=== PATIENT | female | born 1975 | race Caucasian/White ===

== ENCOUNTER 2017-02-11 16:48 | Emergency (ER) | payer MEDICARE ==
[~2017-02-11] VITALS: Ht 154.9 cm; Wt 63.6 kg
[~2017-02-11 16:48] MED LIST: FLEXERIL PO; ULTRAM50 M1 PO
[2017-02-11] MEDS ORDERED: XANAX1 MG PO (17:11)
[2017-02-11] MEDS ORDERED: TRAZODONE50 MG PO (17:11)
[2017-02-11] MEDS ORDERED: ULTRAM50 M1 PO (17:29)
[2017-02-11] MEDS ORDERED: FLEXERIL PO (17:29)
[2017-02-11] MEDS ORDERED: LORTAB 10-325 M1 TAB PO (18:02)
[2017-02-11 18:08] VITALS: BP 132/98
== END 2017-02-11 18:08 | disposition home or self-care (01) ==
LOC: ED 16:48
DX: S39.012A Strain of muscle, fascia and tendon of lower back, initial encounter (principal); M54.40 Lumbago with sciatica, unspecified side

== ENCOUNTER 2017-03-30 09:21 | Emergency (ER) | payer MEDICARE ==
[~2017-03-30] VITALS: Ht 154.9 cm; Wt 70.0 kg
[~2017-03-30 09:21] MED LIST changes: +LORTAB 10-325 M1 TAB PO; +TRAZODONE50 MG PO; +XANAX1 MG PO
[2017-03-30] MEDS ORDERED: MOTRIN800 MG PO (10:07)
[2017-03-30 10:41] VITALS: BP 141/82
== END 2017-03-30 10:47 | disposition home or self-care (01) ==
LOC: ED 09:21
DX: S93.402A Sprain of unspecified ligament of left ankle, initial encounter (principal); F32.9 Major depressive disorder, single episode, unspecified; W14.XXXA Fall from tree, initial encounter; Y92.007 Garden or yard of unspecified non-institutional (private) residence as the place of occurrence of the external cause

== ENCOUNTER 2017-04-02 10:16 | Emergency (ER) | payer MEDICARE ==
[~2017-04-02] VITALS: Ht 154.9 cm; Wt 68.0 kg
[~2017-04-02 10:16] MED LIST changes: +MOTRIN800 MG PO
[2017-04-02] MEDS ORDERED: MOTRIN800 MG PO (10:49)
[2017-04-02 10:52] VITALS: BP 121/82
== END 2017-04-02 10:57 | disposition home or self-care (01) ==
LOC: ED 10:16
DX: G56.31 Lesion of radial nerve, right upper limb (principal); F32.9 Major depressive disorder, single episode, unspecified; F17.210 Nicotine dependence, cigarettes, uncomplicated

== ENCOUNTER 2017-04-18 11:17 | Emergency (ER) | payer MEDICARE, OTHER ==
[~2017-04-18] VITALS: Ht 154.9 cm; Wt 68.2 kg
[2017-04-18] MEDS ORDERED: HYDROCODONE/ACE1 TAB PO (11:39)
[2017-04-18] MEDS ORDERED: EC-NAPROSYN500 MG PO (11:39)
[2017-04-18 11:50] VITALS: BP 117/67
== END 2017-04-18 12:05 | disposition home or self-care (01) ==
LOC: ED 11:17
DX: G89.29 Other chronic pain (principal); M54.5 Low back pain

== ENCOUNTER 2017-09-14 11:53 | Emergency (ER) | payer MEDICARE, OTHER ==
[~2017-09-14] VITALS: Ht 154.9 cm; Wt 67.2 kg
[~2017-09-14 11:53] MED LIST changes: +EC-NAPROSYN500 MG PO; +HYDROCODONE/ACE1 TAB PO
[2017-09-14] MEDS ORDERED: MOTRIN800 MG PO (12:22)
[2017-09-14] MEDS ORDERED: FLEXERIL PO (12:22)
[2017-09-14] MEDS ORDERED: LORTAB 5/3255 MG PO (12:22)
[2017-09-14 12:53] VITALS: BP 112/83
== END 2017-09-14 12:53 | disposition home or self-care (01) ==
LOC: ED 11:53
DX: M54.32 Sciatica, left side (principal); F32.9 Major depressive disorder, single episode, unspecified; F17.210 Nicotine dependence, cigarettes, uncomplicated